=== PATIENT | male | born 1980 | race Caucasian/White ===

== ENCOUNTER 2020-02-14 10:28 | Emergency (ER) | payer SELFPAY ==
--- NOTE | ~2020-02-14 | XR_ITS ---
XR chest 1V portable DATE: 02/14/2020 11:04 INDICATION: Confusion. Unconscious episode. TECHNIQUE: Portable upright AP views on 02/14/2020 1101 hours COMPARISON: None FINDINGS: Normal heart size. No hilar or mediastinal enlargement. No pulmonary infiltrate or consolid ation, pleural effusion or pulmonary vascular congestion or pneumothorax. Included skeletal structure s are unremarkable. IMPRESSION: No active cardiopulmonary disease Reviewed, dictated and finalized at location A.
--- NOTE | 2020-02-14 10:32 | ECG_ITS ---
Measurements Intervals [place] Rate: 111 P: 43 GA: 108 QRS: 57 QRSD: 94 T: 81 QT: 344 QTc: 468 Interpretive Statements SINUS TACHYCARDIA BORDERLINE T WAVE ABNORMALITY- HIGH LATERAL LEADS BASELINE ARTIFACT- I, III ABNORMAL ECG Electronically Signed On 02-14-2020 14:01:42 CDT by Jeremy Vera D.O.
[2020-02-14 10:34] VITALS: PULSE 111; RESP 98; TEMP 36.7; O2SAT 98
[2020-02-14] MEDS: SODIUM CHLORIDE 0.9% IV 1,000 ML 999 ML IV CONT ×2 (11:04→11:16)
[2020-02-14 11:32] LABS: Basophils Absolute Auto 0.1 K/mm3 (0.0-0.1); Basophils Percent Auto 0.6 % (0.2-1.2); Eosinophils Absolute Auto 0.1 K/mm3 (0-0.3); Eosinophils Percent Auto 0.6 % (0-4.4); Hematocrit 45.4 % (42.0-52.0); Hemoglobin 16.3 g/dL (14.0-18.0); Immature Granulocyte Absolute 0.05 K/mm3 (0.00-0.031); Immature Granulocyte Percent A 0.4 % (0-0.5); Lymphocytes Absolute Auto 2.09 K/mm3 (0.9-3.2); Lymphocytes Percent Auto 16.9 % (18.3-44.2); Mean Corpuscular HGB Conc 35.9 g/dl (32-36); Mean Corpuscular Hemoglobin 32.3 pg (26-34); Mean Corpuscular Volume 89.9 fl (80-100); Mean Platelet Volume 10.9 fl (7.4-10.4); Monocytes Percent Auto 8.3 % (2.6-8.5); Neutrophils Percent Auto 73.2 % (45.5-73.1); Platelet Count Result 272 k/mm3 (150-375); Red Blood Count 5.05 M/mm3 (4.6-6.20); Red Cell Distribution Width 12.5 % (11.5-14.5); White Blood Count 12.4 K/mm3 (4.5-10.0)
[2020-02-14 11:42] LABS: Partial Thromboplastin Time 26.8 SECONDS (22.3-36.8); Prothrombin Time 13.2 Seconds (11.1-14.7)
[2020-02-14 11:43] LABS: Lactic Acid Reflex 1.4 mmol/L (0.7-2.1)
[2020-02-14 11:44] LABS: Acetaminophen < 10 ug/mL (10-30); Ethanol < 10 mg/dL (<10); Salicylate < 1.0 mg/dL (2-20)
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
[2020-02-14 11:51] LABS: Alanine Aminotransferase 81 U/L (4-50); Albumin Level 5.1 g/dL (3.5-5.1); Alkaline Phosphatase 93 U/L (38-126); Anion Gap 22.6 mmol/L (7-16); Aspartate Amino Transferase 139 U/L (17-59); Bilirubin,Total 1.4 mg/dL (0.2-1.3); Blood Urea Nitrogen 50 mg/dL (9-20); Calcium 10.5 mg/dL (8.4-10.2); Carbon Dioxide 20 mmol/L (22-30); Chloride 96 mmol/L (98-107); Estimated CRCL calculation 15 ml/min; Estimated Glomerular Filt Rate 10; Glucose 101 mg/dL (75-110); Potassium 3.6 mmol/L (3.4-5.0); Sodium 135 mmol/L (137-145)
[2020-02-14 12:15] LABS: Thyroid Stimulating Hormone 0.631 uIU/mL (0.465-4.680)
[2020-02-14 12:23] VITALS: BP 110/70; PULSE 100; RESP 20; O2SAT 98
[2020-02-14 12:35] LABS: Creatine Kinase 5018 U/L (55-170)
[2020-02-14 13:20] VITALS: BP 125/70; PULSE 87; RESP 20; O2SAT 99
[2020-02-14 13:56] VITALS: BP 124/76; PULSE 85; RESP 20; O2SAT 99
== END 2020-02-14 15:06 | disposition left against medical advice (07) ==
PROVIDERS: Emergency Provider General Practice; PCP Nurse Practitioner Family
DX: N17.9 Acute kidney failure, unspecified (principal); M62.82 Rhabdomyolysis; I10 Essential (primary) hypertension
CPT/HCPCS: 36415; 71045; 80053; 80307; 82550; 83605; 84443; 85025; 85610; 85730; 93005; 96360; 96361; 99283; J7030

== ENCOUNTER 2022-07-10 19:38 | Emergency (ER) | payer BC, SELFPAY ==
--- NOTE | ~2022-07-10 | XR_ITS ---
XR chest 2V DATE: 07/10/2022 20:10 INDICATION: Cough and shortness of breath for 2 days. Smoker. Hypertension. TECHNIQUE: PA and lateral views COMPARISON: 02/13/2020 portable AP chest FINDINGS: Moderate bilateral hyperinflation consistent with history of smoking. No pulmonary infiltra te or consolidation, pleural effusion or pulmonary vascular congestion or pneumothorax is detected. Normal heart size. No hilar or mediastinal enlargement. Included skeletal structures are unremarkable. IMPRESSION: Moderate bilateral hyperinflation; no active cardiopulmonary disease Reviewed, dictated and finalized at location A. OTICS AND VICE DETECTIVE IMPRESSION: Moderate bilateral hyperinflation; no active cardiopulmonary diseas e
[2022-07-10 20:44] VITALS: BP 132/101; PULSE 98; RESP 20; TEMP 37.2; O2SAT 99
[2022-07-10 21:13] LABS: Influenza A QL RT-PCR Negative (Negative); Influenza B QL RT-PCR Negative (Negative); RSV RNA, RT-PCR Negative (Negative); SARS-CoV-2 RNA PCR Negative
--- NOTE | 2022-07-10 21:57 | ED.URI ---
HPI - URI/Sore Throat General Chief Complaint: Upper Respiratory Infection Stated Complaint: Cough, chills Time Seen by Provider: 07/10/22 19:54 History of Present Illness HPI Narrative: 41-year-old male presents to the emergency room for evaluation of cough and congestion for 2 days. States his has been experiencing similar symptoms for over a week. Reports a subjective fever of 99.8. Has been taking ASA for his symptoms. Denies shortness of breath difficulty breathing. Also endorses sinus congestion. Related Data Home Medications Medication Instructions Recorded Confirmed clonazepam 0.5 mg tablet (Klonopin) 0.5 mg PO BID 02/14/20 lisinopril 40 mg tablet 40 mg PO DAILY 02/14/20 Allergies Allergy/AdvReac Type Severity Reaction Status Date / Time carbamazepine Allergy Unknown BLISTERS Verified 07/10/22 22:24 Review of Systems Review of Systems: CONSTITUTIONAL: Denies fever, chills, or sweats. EYES: Denies visual changes, redness, or discharge. ENT: Reports sinus CARDIOVASCULAR: Denies chest pain, palpitations, or edema. RESPIRATORY: Reports cough GASTROINTESTINAL: Denies abdominal pain, nausea, vomiting, or diarrhea. GENITOURINARY: Denies dysuria or hematuria. SKIN: Denies rash or itching. MUSCULOSKELETAL: Denies back pain, joint pain, or myalgia. NEUROLOGIC: Denies headache, numbness, dizziness, or weakness. PSYCHIATRIC: Denies anxiety or depression. [facility] Past Medical History Medical History Hypertension Social History Social History Alcohol intake: former Substance use type: marijuana and amphetamines Gender identity (if verbalized by the patient): Male Exam Narrative: GENERAL: Well-appearing, well-nourished, no physical limitations, and in no acute distress. HEAD: Normocephalic, atraumatic. EYES: Conjunctivae normal, PERRLA and EOMI. ENT: External nose normal, Nares clear, no rhinorrhea or epistaxis. Mucous membranes moist. Oropharynx without tonsillar hypertrophy exudate or other lesions. External ears normal, bilateral TMs normal bilaterally CHEST: Clear to auscultation. No respiratory distress. No wheezes rales or rhonchi. HEART: Regular rate and rhythm. No murmur heard. Normal peripheral pulses. EXTREMITIES: Normal range of motion. No edema. No clubbing or cyanosis SKIN: Warm, dry, no rash. No noted wounds NEURO: No focal deficits. Alert and oriented x3. MAEW. CN's II-XI intact bilaterally, normal gait PSYCH: Cooperative. Normal mood and affect. Course Vital Signs Vital signs: Vital Signs Temperature 37.2 C 07/10/22 20:44 Pulse Rate 98 07/10/22 20:44 Respiratory Rate 20 07/10/22 20:44 Blood Pressure 132/101 H 07/10/22 20:44 Pulse Oximetry 99 07/10/22 20:44 Oxygen Delivery Room Air 07/10/22 20:44 Temperature 37.2 C 07/10/22 20:44 Pulse Rate 98 07/10/22 20:44 Respiratory Rate 20 07/10/22 20:44 Blood Pressure 132/101 H 07/10/22 20:44 Pulse Oximetry 99 07/10/22 20:44 Oxygen Delivery Room Air 07/10/22 22:22 MDM - URI/Sore Throat Lab Data Labs: Lab Results 07/10/22 Range/Units 20:29 Influenza A (RT-PCR) Negative (Negative) Influenza B (RT-PCR) Negative (Negative) RSV (RT-PCR) Negative (Negative) SARS-CoV-2 RNA (RT-PCR) Negative Imaging Data Radiologist's impression: Impressions Chest X-Ray 07/10/22 20:15 IMPRESSION: Moderate bilateral hyperinflation; no active cardiopulmonary disease Discharge Plan Discharge Clinical Impression: Upper respiratory infection Patient Disposition: Home, Self-Care Condition: Stable Instructions: Antibiotic Form, Viral Syndrome (ED) Prescriptions: New prednisone 20 mg tablet 60 mg PO DAILY Qty: 15 0RF albuterol sulfate 90 mcg/actuation HFA aerosol inhaler 1 inh inhalation QID Qty: 6.7 0RF No Action clon
[2022-07-10 22:53] VITALS: PULSE 99; RESP 20
[2022-07-10] MEDS: IPRATROPIUM BR 0.02% INH SOLN 0.5 MG/2.5 ML VIAL INHALATION (22:53)
[2022-07-10] MEDS: ALBUTEROL SULFATE NEB 2.5 MG/3 ML INH INHALATION (22:53)
== END 2022-07-10 23:15 | disposition home or self-care (01) ==
PROVIDERS: Emergency Provider Nurse Practitioner Family; PCP Nurse Practitioner Family
DX: J06.9 Acute upper respiratory infection, unspecified (principal); Z20.822 Contact with and (suspected) exposure to COVID-19; I10 Essential (primary) hypertension
CPT/HCPCS: 71046; 87637; 94640; 96372; 99283; J1100